=== PATIENT | female | born 1935 | race Two or more races ===

== ENCOUNTER 2018-08-17 07:18 | Outpatient (CLI) | payer OTHER | END 2018-08-17 08:40 | disposition home or self-care (01) | LOC: NUCLEAR 07:18 | DX: I11.9 Hypertensive heart disease without heart failure (principal); I25.10 Atherosclerotic heart disease of native coronary artery without angina pectoris; E78.89 Other lipoprotein metabolism disorders | CPT/HCPCS: 78452; 93017; A9500; J0153 ==

== ENCOUNTER 2021-09-08 15:00 | Outpatient (CLI) | payer OTHER | END 2021-09-08 15:15 | disposition home or self-care (01) | LOC: PPH VACUNA 15:00 | PROVIDERS: ATTEND Emergency Medicine Pediatric Emergency Medicine | DX: Z23 Encounter for immunization (principal) ==